=== PATIENT | female | born 1945 | race Caucasian/White ===

== ENCOUNTER 2021-10-28 12:37 | Emergency (ER) | payer MEDICARE, OTHER ==
[~2021-10-28 12:37] MED LIST: ASCORBIC ACID500 MG PO; ASPIRIN EC81 MG PO; CERTAGEN1 EACH PO; DICYCLOMINE HCL20 MG PO; LIPITOR 10MG TA10 MG PO; LISINOPRIL10 MG PO; MAGNESIUM500 MG PO; VITAMIN D34000 UNIT PO; VITAMIN K240 MCG PO; ZANAFLEX2 MG PO; [UNRECOGNIZED DRUG - REMARK] PO
[2021-10-28] MEDS ORDERED: VENTOLIN HFA18 GM INH (12:51)
[2021-10-28] MEDS ORDERED: ONDANSETRON ODT4 MG PO (12:51)
[2021-10-28] MEDS ORDERED: NAPROXEN500 MG PO (12:51)
[2021-10-28] MEDS ORDERED: TESSALON PERLE100 MG PO (12:51)
== END 2021-10-28 15:12 | disposition home or self-care (01) ==
LOC: FER 12:37
DX: J02.9 Acute pharyngitis, unspecified (principal); I10 Essential (primary) hypertension; Z79.82 Long term (current) use of aspirin; Z79.899 Other long term (current) drug therapy
CPT/HCPCS: 87880; 99283

== ENCOUNTER → 2022-01-20 | Day surgery (SDC) | payer MEDICARE, OTHER ==
[~2022-01-20] VITALS: Ht 162.6 cm; Wt 63.5 kg
[~2022-01-20] MED LIST changes: +NAPROXEN500 MG PO; +ONDANSETRON ODT4 MG PO; +TESSALON PERLE100 MG PO; +VENTOLIN HFA18 GM INH
== END | disposition home or self-care (01) ==
LOC: FAS 07:14
DX: L72.0 Epidermal cyst (principal); K40.90 Unilateral inguinal hernia, without obstruction or gangrene, not specified as recurrent; E78.5 Hyperlipidemia, unspecified; I10 Essential (primary) hypertension; J44.9 Chronic obstructive pulmonary disease, unspecified; G47.33 Obstructive sleep apnea (adult) (pediatric); Z87.891 Personal history of nicotine dependence; Z79.82 Long term (current) use of aspirin; Z79.899 Other long term (current) drug therapy
CPT/HCPCS: J7120

== ENCOUNTER 2022-02-18 10:53 | Day surgery (SDC) | payer MEDICARE, OTHER ==
[~2022-02-18] VITALS: Ht 162.6 cm; Wt 63.5 kg
[2022-02-19 07:32] LABS: HCT 39.9 % (37.0-47.0); HGB 13.1 g/dl (12.5-16.0); MCH 28.9 pg (25.0-31.0); MCHC 32.8 g/dL (32.0-36.0); MCV 87.9 fL (78.0-100.0); MPV 11.2 fL (6.0-9.5); RBC 4.54 M/uL (4.20-5.40); RDW 15.7 % (11.5-14.0)
[2022-02-19 07:46] LABS: BUN/CREAT RATIO (CALC) 18.8 RATIO; CREATININE 0.69 mg/dL (0.51-0.95); POTASSIUM 3.8 mmol/L (3.5-5.1)
--- NOTE | 2022-02-19 12:33 | NUR ---
02/19 Patient lives at home with her spouse. She is independent in the home and community. No discharge planning needs are anticipated.
[2022-02-19] MEDS ORDERED: NORCO 5-325 TA1 EACH PO (13:01)
== END 2022-02-19 13:43 | disposition home or self-care (01) ==
LOC: FAS 10:53 → FMS 16:16 → FAS 02-19 13:43
PROVIDERS: Nurse Practitioner
DX: K41.90 Unilateral femoral hernia, without obstruction or gangrene, not specified as recurrent (principal); L72.9 Follicular cyst of the skin and subcutaneous tissue, unspecified; D17.79 Benign lipomatous neoplasm of other sites; E78.5 Hyperlipidemia, unspecified; I10 Essential (primary) hypertension; G47.33 Obstructive sleep apnea (adult) (pediatric); J44.9 Chronic obstructive pulmonary disease, unspecified; Z87.891 Personal history of nicotine dependence; Z79.899 Other long term (current) drug therapy
CPT/HCPCS: 36415; 80048; 94010; J0690; J2250; J3010; J7120

== ENCOUNTER 2022-03-17 17:16 | Emergency (ER) | payer MEDICARE, OTHER ==
[~2022-03-17 17:16] MED LIST changes: +NORCO 5-325 TA1 EACH PO
[2022-03-17] MEDS ORDERED: NORCO 5-325 TA1 EACH PO (20:09)
== END 2022-03-17 20:30 | disposition home or self-care (01) ==
LOC: FER 17:16
DX: S96.911A Strain of unspecified muscle and tendon at ankle and foot level, right foot, initial encounter (principal); I10 Essential (primary) hypertension; W10.9XXA Fall (on) (from) unspecified stairs and steps, initial encounter; X50.1XXA Overexertion from prolonged static or awkward postures, initial encounter
CPT/HCPCS: 73610; 73630